=== PATIENT | female | born 1930 | race Two or more races ===

== ENCOUNTER 2017-05-01 11:02 | Emergency (ER) | payer MEDICARE ==
[2017-05-01] MEDS ORDERED: IBUPROFEN 400 MG TAB PO STA (11:27)
[2017-05-01] MEDS ORDERED: ACETAMINOPHEN TAB 500 MG TAB PO STA (11:27)
--- NOTE | 2017-05-01 11:32 | ED ---
General Adult HPI - General Chief complaint: Extremity Injury, Upper Stated complaint: Wrist pain Time Seen by Provider: 05/01/17 11:11 Source: patient Mode of arrival: wheelchair Limitations: no limitations - History of Present Illness Initial comments: Patient is an 86-year-old female who presents with a chief complaint of right wrist pain. The patient localizes her wrist pain on the ulnar aspect of her volar arm. Patient denies any inciting incidences such as falls or other trauma. Patient states that aggravating factors are wrist movement and blowing her nose. There are no alleviating factors. The patient tried taking any medications other than an 81 mg aspirin for the pain. Patient cannot characterize her pain saying "it just hurts". Patient has no other complaints today. - Related Data Home Medications Medication Instructions Recorded Confirmed Aspirin 81 mg PO DAILY 12/22/14 05/01/17 Furosemide [Lasix] 20 mg PO DAILY 12/22/14 05/01/17 Lisinopril [Prinivil] 5 mg PO DAILY 12/22/14 05/01/17 Multivit-Min/FA/Lycopene/Lut 1 tab PO DAILY 12/22/14 05/01/17 [Centrum Silver Tablet] Nadolol [Corgard] 20 mg PO DAILY 12/22/14 05/01/17 Potassium Chloride [K-Tab ER] 10 meq PO DAILY 12/22/14 05/01/17 Simvastatin [Zocor] 40 mg PO DAILY 12/22/14 05/01/17 glipiZIDE [Glucotrol] 5 mg PO AC-BRKFST 12/22/14 05/01/17 Previous Rx's Medication Instructions Recorded HYDROcodone/APAP 5-325MG [[place] 1 tab PO Q4HR PRN #5 tab 05/01/17 5-325] Naproxen Sodium [Aleve] 220 mg PO Q12HR #20 tab 05/01/17 Allergies Allergy/AdvReac Type Severity Reaction Status Date / Time diphenhydramine HCl Allergy Anaphylaxis Verified 05/01/17 11:50 [From Tila] Review of Systems ROS Statement: Those systems with pertinent positive or pertinent negative responses have been documented in the HPI. ROS Other: All systems not noted in ROS Statement are negative. Musculoskeletal: Reports: arthralgia Past Medical History Past Medical History: Heart Failure, Diabetes Mellitus, Hyperlipidemia, Hypertension Additional Past Medical History / Comment(s): oxygen at night History of Any Multi-Drug Resistant Organisms: None Reported Past Surgical History: Appendectomy, Hysterectomy Past Psychological History: No Psychological Hx Reported Smoking Status: Never smoker Past Alcohol Use History: None Reported, Occasional Past Drug Use History: None Reported General Exam Limitations: no limitations General appearance: alert, in no apparent distress Head exam: Present: atraumatic, normocephalic Eye exam: Present: normal appearance Respiratory exam: Present: normal lung sounds bilaterally. Absent: respiratory distress Cardiovascular Exam: Present: regular rate, normal rhythm GI/Abdominal exam: Present: soft. Absent: distended, tenderness Rectal exam: Present: deferred Extremities exam: Present: other (Patient has point tenderness to palpation at the ulnar fusiform junction. The pain is on the volar aspect of the wrist.) Neurological exam: Present: alert, oriented X3, CN II-XII intact, other ( Patient does not have any focal deficit.) Psychiatric exam: Present: normal affect, normal mood Course Vital Signs 05/01/17 11:05 Temperature 98.8 F Pulse Rate 64 Respiratory 16 Rate Blood Pressure 119/55 O2 Sat by Pulse 98 Oximetry Medical Decision Making - Medical Decision Making Patient presents with a chief complaint of atraumatic right wrist pain. Patient will be given Motrin, and Tylenol for pain control. We'll obtain an x- ray to rule out fracture, arthritis. Disposition Clinical Impression: Right wrist pain, Arthritis of right wrist Disposition: HOME SELF-CARE Condition: Good Instructions: Arthritis (ED) Prescriptions: HYDROcodone/APAP 5-325MG [[place] 5-325] 1 tab PO Q4HR PRN #5 tab PRN Reason: Pain Naproxen Sodium [Aleve] 220 mg PO Q12HR #20 tab Referrals: Kay Aranda MD [Primary Care Provider] - 1-2 days
--- NOTE | 2017-05-01 13:11 | XR ---
EXAMINATION TYPE: XR wrist complete RT DATE OF EXAM: 05/01/2017 CLINICAL HISTORY: Pain. TECHNIQUE: Frontal, lateral, scaphoid, and oblique images of the right wrist are obtained. COMPARISON: None FINDINGS: Osseous structures are demineralized. There is no acute fracture/dislocation evident in the right wrist. There is moderate joint space loss with heterotopic ossification base of first metacarp al. Mild diffuse subcutaneous edema is present. IMPRESSION: As above.
[2017-05-01 13:47] VITALS: BP 109/54; PULSE 58; RESP 18; TEMP 97.9
== END 2017-05-01 13:47 | disposition home or self-care (01) ==
LOC: EC 11:02
DX: M19.031 Primary osteoarthritis, right wrist (principal); E11.9 Type 2 diabetes mellitus without complications; I11.0 Hypertensive heart disease with heart failure; I50.9 Heart failure, unspecified; E78.5 Hyperlipidemia, unspecified; Z79.82 Long term (current) use of aspirin; Z79.84 Long term (current) use of oral hypoglycemic drugs; Z79.899 Other long term (current) drug therapy; Z88.8 Allergy status to other drugs, medicaments and biological substances
CPT/HCPCS: 99283

== ENCOUNTER 2018-05-17 22:03 | Observation (INO) | payer MEDICARE ==
[2018-05-17] MEDS ORDERED: SODIUM CHLORIDE 0.9% 1,000 ML IV STA (22:08)
--- NOTE | 2018-05-17 22:08 | ED ---
Weakness HPI - General Stated complaint: Weakness Time Seen by Provider: 05/17/18 22:07 Source: RN notes reviewed, old records reviewed - History of Present Illness Initial comments: This is an 79-year-old female the ER for evaluation she presents today for evaluation of weakness and inability and late. Patient does have difficulty moving getting up and down sitting but this was much worse today. She could not stand and neck her chair. EMS was called patient brought the emergency room. Patient continues to complain of significant weakness mild shortness of breath and fatigue. No recent change in medications no fevers, no nausea vomiting or diarrhea MD Complaint: generalized weakness -: hour(s) Location: generalized, LLE, RLE Severity: severe Consistency: constant Improves with: none Worsens with: none Associated Symptoms: chest pain, shortness of breath - Related Data Home Medications Medication Instructions Recorded Confirmed Aspirin 81 mg PO DAILY 12/22/14 05/17/18 Furosemide [Lasix] 20 mg PO DAILY 12/22/14 05/17/18 Lisinopril [Prinivil] 5 mg PO DAILY 12/22/14 05/17/18 Nadolol [Corgard] 20 mg PO DAILY 12/22/14 05/17/18 Potassium Chloride [K-Tab ER] 10 meq PO DAILY 12/22/14 05/17/18 Simvastatin [Zocor] 40 mg PO DAILY 12/22/14 05/17/18 glipiZIDE [Glucotrol] 5 mg PO AC-BRKFST 12/22/14 05/17/18 Allergies Allergy/AdvReac Type Severity Reaction Status Date / Time diphenhydramine HCl Allergy Anaphylaxis Verified 05/17/18 22:14 [From Benadryl] Review of Systems ROS Statement: Those systems with pertinent positive or pertinent negative responses have been documented in the HPI. ROS Other: All systems not noted in ROS Statement are negative. Past Medical History Past Medical History: Heart Failure, Diabetes Mellitus, Hyperlipidemia, Hypertension Additional Past Medical History / Comment(s): oxygen at night History of Any Multi-Drug Resistant Organisms: None Reported Past Surgical History: Appendectomy, Hysterectomy Past Psychological History: No Psychological Hx Reported Smoking Status: Never smoker Past Alcohol Use History: None Reported, Occasional Past Drug Use History: None Reported General Exam General appearance: alert, in no apparent distress, obese Head exam: Present: atraumatic, normocephalic, normal inspection Eye exam: Present: normal appearance, PERRL, EOMI. Absent: scleral icterus, conjunctival injection, periorbital swelling ENT exam: Present: normal exam, mucous membranes moist Neck exam: Present: normal inspection. Absent: tenderness, meningismus, lymphadenopathy Respiratory exam: Present: normal lung sounds bilaterally. Absent: respiratory distress, wheezes, rales, rhonchi, stridor Cardiovascular Exam: Present: regular rate, normal rhythm, normal heart sounds. Absent: systolic murmur, diastolic murmur, rubs, gallop, clicks GI/Abdominal exam: Present: soft, normal bowel sounds. Absent: distended, tenderness, guarding, rebound, rigid Extremities exam: Present: normal inspection, full ROM, normal capillary refill. Absent: tenderness, pedal edema, joint swelling, calf tenderness Back exam: Present: normal inspection Neurological exam: Present: alert, oriented X3, CN II-XII intact Psychiatric exam: Present: normal affect, normal mood Skin exam: Present: warm, dry, intact, normal color. Absent: rash Course Vital Signs 05/17/18 05/17/18 05/17/18 22:10 22:27 22:59 Temperature 98.9 F Pulse Rate 72 67 Pulse Rate [ 72 Apical] Respiratory 20 22 Rate Blood Pressure 143/69 144/63 O2 Sat by Pulse 92 L 96 Oximetry - Reevaluation(s) Reevaluation #1: 05/18/18 01:44 Medical record is reviewed Reevaluation #2: 05/18/18 01:44 Patient remains unable to ambulate EKG Findings - EKG Comments: EKG Findings:: EKG shows A. fib rate of 67, QRS 90, QTc 422 Medical Decision Making - Medical Decision Making 87 female the ER for evaluation. Patient will be admitted for inability to ambulate and weakness. - Lab Data Result diagrams: 05/17/18 22:29 05/17/18 22:29 Lab Results 05/17/18 05/17/18 05/17/18 Range/Units 22:29 22:29 22:29 WBC 7.7 (3.8-10.6) k/uL RBC 4.48 (3.80-5.40) m/uL Hgb 14.7 (11.4-16.0) gm/dL Hct 47.7 H (34.0-46.0) % MCV 106.3 H (80.0-100.0) fL MCH 32.9 (25.0-35.0) pg MCHC 30.9 L (31.0-37.0) g/dL RDW 13.4 (11.5-15.5) % Plt Count 143 L (150-450) k/uL Neutrophils % 68 % Lymphocytes % 16 % Monocytes % 9 % Eosinophils % 3 % Basophils % 0 % Neutrophils # 5.2 (1.3-7.7) k/uL Lymphocytes # 1.2 (1.0-4.8) k/uL Monocytes # 0.7 (0-1.0) k/uL Eosinophils # 0.2 (0-0.7) k/uL Basophils # 0.0 (0-0.2) k/uL Hypochromasia Slight Macrocytosis Moderate PT (9.0-12.0) sec INR (<1.2) APTT (22.0-30.0) sec Sodium 137 (137-145) mmol/L Potassium 5.5 H (3.5-5.1) mmol/L Chloride 98 (98-107) mmol/L Carbon Dioxide 32 H (22-30) mmol/L Anion Gap 7 mmol/L BUN 25 H (7-17) mg/dL Creatinine 0.89 (0.52-1.04) mg/dL Est GFR (CKD-EPI)AfAm 67 (>60 ml/min/1.73 sqM) Est GFR (CKD-EPI)NonAf 58 (>60 ml/min/1.73 sqM) Glucose 256 H (74-99) mg/dL Plasma Lactic Acid Timothy 2.1 H* (0.7-2.0) mmol/L Calcium 9.8 (8.4-10.2) mg/dL Phosphorus 3.4 (2.5-4.5) mg/dL Magnesium 1.7 (1.6-2.3) mg/dL Total Bilirubin 1.0 (0.2-1.3) mg/dL AST 39 H (14-36) U/L ALT 28 (9-52) U/L Alkaline Phosphatase 55 (38-126) U/L Troponin I (0.000-0.034) ng/mL Total Protein 7.6 (6.3-8.2) g/dL Albumin 3.8 (3.5-5.0) g/dL TSH 0.770 (0.465-4.680) mIU/L Urine Color Urine Appearance (Clear) Urine pH (5.0-8.0) Ur Specific [place] (1.001-1.035) Urine Protein (Negative) Urine Glucose (UA) (Negative) Urine Ketones (Negative) Urine Blood (Negative) Urine Nitrite (Negative) Urine Bilirubin (Negative) Urine Urobilinogen (<2.0) mg/dL Ur Leukocyte Esterase (Negative) 05/17/18 05/17/18 05/17/18 Range/Units 22:29 22:57 23:20 WBC (3.8-10.6) k/uL RBC (3.80-5.40) m/uL Hgb (11.4-16.0) gm/dL Hct (34.0-46.0) % MCV (80.0-100.0) fL MCH (25.0-35.0) pg MCHC (31.0-37.0) g/dL RDW (11.5-15.5) % Plt Count (150-450) k/uL Neutrophils % % Lymphocytes % % Monocytes % % Eosinophils % % Basophils % % Neutrophils # (1.3-7.7) k/uL Lymphocytes # (1.0-4.8) k/uL Monocytes # (0-1.0) k/uL Eosinophils # (0-0.7) k/uL Basophils # (0-0.2) k/uL Hypochromasia Macrocytosis PT 10.7 (9.0-12.0) sec INR 1.0 (<1.2) APTT 21.9 L (22.0-30.0) sec Sodium (137-145) mmol/L Potassium (3.5-5.1) mmol/L Chloride (98-107) mmol/L Carbon Dioxide (22-30) mmol/L Anion Gap mmol/L BUN (7-17) mg/dL Creatinine (0.52-1.04) mg/dL Est GFR (CKD-EPI)AfAm (>60 ml/min/1.73 sqM) Est GFR (CKD-EPI)NonAf (>60 ml/min/1.73 sqM) Glucose (74-99) mg/dL Plasma Lactic Acid Timothy (0.7-2.0) mmol/L Calcium (8.4-10.2) mg/dL Phosphorus (2.5-4.5) mg/dL Magnesium (1.6-2.3) mg/dL Total Bilirubin (0.2-1.3) mg/dL AST (14-36) U/L ALT (9-52) U/L Alkaline Phosphatase (38-126) U/L Troponin I <0.012 (0.000-0.034) ng/mL Total Protein (6.3-8.2) g/dL Albumin (3.5-5.0) g/dL TSH (0.465-4.680) mIU/L Urine Color Yellow Urine Appearance Clear (Clear) Urine pH 6.5 (5.0-8.0) Ur Specific [place] 1.013 (1.001-1.035) Urine Protein Trace H (Negative) Urine Glucose (UA) 4+ H (Negative) Urine Ketones Negative (Negative) Urine Blood Negative (Negative) Urine Nitrite Negative (Negative) Urine Bilirubin Negative (Negative) Urine Urobilinogen 2.0 (<2.0) mg/dL Ur Leukocyte Esterase Negative (Negative) - Radiology Data Radiology results: report reviewed (Chest x-rays negative for acute disease), image reviewed Disposition Clinical Impression: Weakness, FTT (failure to thrive) in adult, Unable to ambulate Disposition: ADMITTED IP TO THIS [facility] Condition: Fair Is patient prescribed a controlled substance at d/c from ED?: No Referrals: Kay Aranda MD [Primary Care Provider] - 1-2 days
[2018-05-17 22:35] LABS: Basophils % (A) 0 %; Eosinophils # (A) 0.2 k/uL (0-0.7); Eosinophils % (A) 3 %; HCT 47.7 % (34.0-46.0); HGB 14.7 gm/dL (11.4-16.0); Hypochromasia Slight; Lymphocytes # (A) 1.2 k/uL (1.0-4.8); Lymphocytes % (A) 16 %; MCH 32.9 pg (25.0-35.0); MCHC 30.9 g/dL (31.0-37.0); MCV 106.3 fL (80.0-100.0); Macrocytosis Moderate; Mean Platelet Volume 7.6; Monocytes # (A) 0.7 k/uL (0-1.0); Monocytes % (A) 9 %; Neutrophils # (A) 5.2 k/uL (1.3-7.7); Neutrophils % (A) 68 %; Platelet Count 143 k/uL (150-450); RBC 4.48 m/uL (3.80-5.40); RDW 13.4 % (11.5-15.5); WBC 7.7 k/uL (3.8-10.6)
[2018-05-17 22:46] LABS: Albumin 3.8 g/dL (3.5-5.0); Calcium 9.8 mg/dL (8.4-10.2); Magnesium 1.7 mg/dL (1.6-2.3); Phosphorus 3.4 mg/dL (2.5-4.5); Total Protein 7.6 g/dL (6.3-8.2)
[2018-05-17 22:47] LABS: Potassium 5.5 mmol/L (3.5-5.1)
--- NOTE | 2018-05-17 23:10 | XR ---
EXAM: XR Chest, 2 Views CLINICAL HISTORY: Reason: Weakness TECHNIQUE: Frontal and lateral views of the chest. COMPARISON: None available FINDINGS: Lungs: No focal pulmonary infiltrates or consolidations. No evidence of overt congestive failure or pulmonary edema. Scattered subsegmental atelectasis or fibrotic stranding in both lung bases. Pleural space: No pneumothorax or any significant pleural effusion. Heart: Heart size is mildly enlarged. Mediastinum: Mild atherosclerotic calcifications in tortuous thoracic aorta. Mediastinum otherwise unremarkable. Bones/joints: Prominent hypertrophic degenerative changes involving thoracic spine. IMPRESSION: Mild cardiomegaly. No evidence of acute cardiopulmonary disease.
[2018-05-17 23:21] LABS: Appearance,Urine Clear (Clear); Bilirubin,Urine Negative (Negative); Blood,Urine Negative (Negative); Color,Urine Yellow; Glucose,Urine (UA) 4+ (Negative); Ketones,Urine Negative (Negative); Leukocyte Esterase,Urine Negative (Negative); Nitrite,Urine Negative (Negative); PH, Urine 6.5 (5.0-8.0); Protein,Urine Trace (Negative); Specific Gravity,Urine 1.013 (1.001-1.035)
[2018-05-18 00:05] LABS: Partial Thromboplastin Time 21.9 sec (22.0-30.0); Prothrombin Time 10.7 sec (9.0-12.0)
[2018-05-18 02:46] VITALS: BMI 40.9
[2018-05-18 06:39] LABS: Glucose,Whole Blood 137 mg/dL (75-99)
[2018-05-18] MEDS ORDERED: ENOXAPARIN 40 MG/0.4 ML SYRINGE SQ SCH (09:00)
--- NOTE | 2018-05-18 10:05 | P.CRDCN ---
History of Present Illness Consult date: 05/18/18 Requesting physician: Jonah Davis Chief complaint: Weakness History of present illness: This is an 87-year-old female with history of hypertension, hyperlipidemia, diabetes, history was obtained from the patient and the medical record, as it does appear she may have mild dementia. She presented to the hospital on this occasion because she states she was unable to get up out of the chair, she denies any overt weakness, denies dizziness, no chest discomfort no palpitations no shortness of breath. Just states that she was sitting in a chair and could not get out. An EKG was performed on arrival here which showed atrial fibrillation with a controlled ventricular response. Chest x-ray showed mild cardiomegaly with no evidence of acute cardiopulmonary disease. Blood pressure on arrival 143/69 with a heart rate in the 70s, temperature 98.9, 92% on room air. Blood pressure this morning 120/60 with a heart rate in the 70s, 94% on 2 L of oxygen. White blood cell count 7.7, hemoglobin 14.7, platelet count 143. Sodium 137, potassium 5.5, BUN 25 and creatinine 0.8. Plasma lactic acid level on admission 2.1, 1.1 this morning. Magnesium 1.7, troponin 0.012, TSH 0.770. At the time of my examination this morning, patient is lying comfortably in bed, she denies having any chest is morning. She ate a full breakfast. Past Medical History Past Medical History: Heart Failure, Diabetes Mellitus, Hyperlipidemia, Hypertension Additional Past Medical History / Comment(s): oxygen at night History of Any Multi-Drug Resistant Organisms: None Reported Past Surgical History: Appendectomy, Hysterectomy Past Anesthesia/Blood Transfusion Reactions: No Reported Reaction Past Psychological History: No Psychological Hx Reported Smoking Status: Never smoker Past Alcohol Use History: None Reported, Occasional Past Drug Use History: None Reported - Past Family History Daughter(s) Family Medical History: Hypertension Mother Family Medical History: Diabetes Mellitus Medications and Allergies Home Medications Medication Instructions Recorded Confirmed Type Aspirin 81 mg PO DAILY 12/22/14 05/17/18 History Furosemide [Lasix] 20 mg PO DAILY 12/22/14 05/17/18 History Lisinopril [Prinivil] 5 mg PO DAILY 12/22/14 05/17/18 History Nadolol [Corgard] 20 mg PO DAILY 12/22/14 05/17/18 History Potassium Chloride [K-Tab ER] 10 meq PO DAILY 12/22/14 05/17/18 History Simvastatin [Zocor] 40 mg PO DAILY 12/22/14 05/17/18 History glipiZIDE [Glucotrol] 5 mg PO AC-BRKFST 12/22/14 05/17/18 History Allergies Allergy/AdvReac Type Severity Reaction Status Date / Time diphenhydramine HCl Allergy Anaphylaxis Verified 05/17/18 22:14 [From Benadryl] Physical Exam Vitals: Vital Signs Temp Pulse Pulse Pulse Resp BP BP 05/18/18 08:23 05/18/18 04:00 97.9 F 79 18 120/60 05/18/18 02:30 98.1 F 68 18 102/57 05/17/18 22:59 67 22 144/63 05/17/18 22:27 72 05/17/18 22:10 98.9 F 72 20 143/69 Pulse Ox 05/18/18 08:23 95 05/18/18 04:00 94 L 05/18/18 02:30 95 05/17/18 22:59 96 05/17/18 22:27 05/17/18 22:10 92 L Intake and Output 05/17/18 05/18/18 05/18/18 22:59 06:59 14:59 Intake Total 180 Output Total 100 Balance -100 180 Intake: Oral 180 Output: Urine 100 Straight 100 Other: Voiding Method Diaper Weight 108.2 kg 117 kg PHYSICAL EXAMINATION: GENERAL: 87-year-old female in no acute distress at the time of my examination HEENT: Head is atraumatic, normocephalic. Pupils equal, round. Sclera anicteric. Conjunctiva are clear. Mucous membranes of the mouth are moist. Neck is supple. There is no elevated jugular venous pressure. No carotid bruit is heard. HEART EXAMINATION: Heart S1, S2 irregularly irregular, soft systolic murmur is heard. CHEST EXAMINATION: Lungs reveal fine crackles to bilateral bases ABDOMEN: Soft, nontender. Bowel sounds are heard. No organomegaly noted. EXTREMITIES: 2+ peripheral pulses with trace to 1+ evidence of peripheral edema and no calf tenderness noted. NEUROLOGIC patient is awake, alert and oriented 2 . . Results 05/17/18 22:29 05/17/18 22:29 Cardiac Enzymes 05/17/18 05/17/18 Range/Units 22:29 22:29 AST 39 H (14-36) U/L Troponin I <0.012 (0.000-0.034) ng/mL Coagulation 05/17/18 Range/Units 23:20 PT 10.7 (9.0-12.0) sec APTT 21.9 L (22.0-30.0) sec CBC 05/17/18 Range/Units 22:29 WBC 7.7 (3.8-10.6) k/uL RBC 4.48 (3.80-5.40) m/uL Hgb 14.7 (11.4-16.0) gm/dL Hct 47.7 H (34.0-46.0) % Plt Count 143 L (150-450) k/uL Comprehensive Metabolic Panel 05/17/18 Range/Units 22:29 Sodium 137 (137-145) mmol/L Potassium 5.5 H (3.5-5.1) mmol/L Chloride 98 (98-107) mmol/L Carbon Dioxide 32 H (22-30) mmol/L BUN 25 H (7-17) mg/dL Creatinine 0.89 (0.52-1.04) mg/dL Glucose 256 H (74-99) mg/dL Calcium 9.8 (8.4-10.2) mg/dL AST 39 H (14-36) U/L ALT 28 (9-52) U/L Alkaline Phosphatase 55 (38-126) U/L Total Protein 7.6 (6.3-8.2) g/dL Albumin 3.8 (3.5-5.0) g/dL Current Medications Generic Name Dose Route Start Last Admin Trade Name Freq PRN Reason Stop Dose Admin Enoxaparin Sodium 40 mg 05/18/18 09:00 05/18/18 09:42 Lovenox SQ 40 mg DAILY GRADY Administration Intake and Output 05/17/18 05/18/18 05/18/18 22:59 06:59 14:59 Intake Total 180 Output Total 100 Balance -100 180 Intake: Oral 180 Output: Urine 100 Straight 100 Other: Voiding Method Diaper Weight 108.2 kg 117 kg 05/17/18 22:29 05/17/18 22:29 EKG Interpretations (text) EKG shows atrial fibrillation with controlled ventricular response Assessment and Plan Plan: Assessment and plan #1 symptoms of weakness with inability to ambulate #2 atrial fibrillation with controlled ventricular response, unknown duration #3 hypertension #4 diabetes #5 hyperlipidemia #6 mild dementia Plan We will obtain an echocardiogram with Doppler study. We will also start the patient on Eliquis 2-1/2 mg one tablet by mouth twice a day. Discontinue Lovenox. Resume Zocor, hold potassium, obtain BNP level, give the patient a one -time dose of IV Lasix and resume oral Lasix. We will also start the patient on a beta agnieszka. Further recommendations to follow. DNP note has been reviewed, I agree with a documented findings and plan of care. Patient was seen and examined.
[2018-05-18 11:55] LABS: Glucose,Whole Blood 208 mg/dL (75-99)
--- NOTE | 2018-05-18 12:02 | P.HPIM ---
History of Present Illness H&P Date: 05/18/18 This is a very pleasant 87-year-old female past medical history significant for hypertension, hyperlipidemia, diabetes comes in with above-mentioned complaints. Patient the time examination was alert oriented. She says that she lives at home with her granddaughter and yesterday she was not able to get about the chair or so she called the ambulance for further evaluation and management. The patient does not complain of any chest pain, racing heart, no cough, shortness of breath, no abdominal pain, no nausea and vomiting, no diarrhea constipation, no tingling numbness of any of the extremities, no itch no rash. She does not complain of any lightheadedness or dizziness, she does not complain of any loss of vision or blurry vision, no fever no chills, no headache. ER course-patient's vitals were stable, EKG was done and showed A. fib with controlled rate. Labwork which was done yesterday showed WBC 7.7 hemoglobin 14.7 platelets 143 sodium 137 potassium 5.5 bun 25 creatinine 0.89. Patient was thus admitted to the hospitalist service for further evaluation and management Past Medical History Past Medical History: Heart Failure, Diabetes Mellitus, Hyperlipidemia, Hypertension Additional Past Medical History / Comment(s): oxygen at night History of Any Multi-Drug Resistant Organisms: None Reported Past Surgical History: Appendectomy, Hysterectomy Past Anesthesia/Blood Transfusion Reactions: No Reported Reaction Past Psychological History: No Psychological Hx Reported Smoking Status: Never smoker Past Alcohol Use History: None Reported, Occasional Past Drug Use History: None Reported - Past Family History Daughter(s) Family Medical History: Hypertension Mother Family Medical History: Diabetes Mellitus Medications and Allergies Home Medications Medication Instructions Recorded Confirmed Type Aspirin 81 mg PO DAILY 12/22/14 05/17/18 History Furosemide [Lasix] 20 mg PO DAILY 12/22/14 05/17/18 History Lisinopril [Prinivil] 5 mg PO DAILY 12/22/14 05/17/18 History Nadolol [Corgard] 20 mg PO DAILY 12/22/14 05/17/18 History Potassium Chloride [K-Tab ER] 10 meq PO DAILY 12/22/14 05/17/18 History Simvastatin [Zocor] 40 mg PO DAILY 12/22/14 05/17/18 History glipiZIDE [Glucotrol] 5 mg PO AC-BRKFST 12/22/14 05/17/18 History Allergies Allergy/AdvReac Type Severity Reaction Status Date / Time diphenhydramine HCl Allergy Anaphylaxis Verified 05/17/18 22:14 [From Benadryl] Physical Exam Vitals: Vital Signs Temp Pulse Pulse Pulse Resp BP BP 05/18/18 08:23 05/18/18 08:00 97 F L 70 96 16 124/72 05/18/18 04:00 97.9 F 79 18 120/60 05/18/18 02:30 98.1 F 68 18 102/57 05/17/18 22:59 67 22 144/63 05/17/18 22:27 72 05/17/18 22:10 98.9 F 72 20 143/69 Pulse Ox 05/18/18 08:23 95 05/18/18 08:00 05/18/18 04:00 94 L 05/18/18 02:30 95 05/17/18 22:59 96 05/17/18 22:27 05/17/18 22:10 92 L Intake and Output 05/17/18 05/18/18 05/18/18 22:59 06:59 14:59 Intake Total 180 Output Total 100 Balance -100 180 Intake: Oral 180 Output: Urine 100 Straight 100 Other: Voiding Method Diaper Weight 108.2 kg 117 kg On exam, alert and oriented x3. HEENT: Conjunctivae normal. eyes normal. NECK: No JVD. No thyroid enlargement. No LNs CARDIOVASCULAR: S1-S2 positive RESPIRATION: Breath sounds diminished in the bases. No rhonchi or crackles. No bronchial breathing. ABDOMEN: Soft, nontender . No guarding. no masses palpable. No ascites, No hepatosplenomegaly.Bowel sounds heard. LEGS: No edema. no swelling NERVOUS SYSTEM: Cranial N 2-12 grossly normal. Moves all 4 limbs but weak on her bilateral lower extremities barely able to lift the legs above the bed. Skin: no ulcer no rash Results CBC & Chem 7: 05/17/18 22:29 05/17/18 22:29 Labs: Abnormal Lab Results - Last 24 Hours (Table) 05/17/18 05/17/18 05/17/18 Range/Units 22:29 22:29 22:29 Hct 47.7 H (34.0-46.0) % MCV 106.3 H (80.0-100.0) fL MCHC 30.9 L (31.0-37.0) g/dL Plt Count 143 L (150-450) k/uL APTT (22.0-30.0) sec Potassium 5.5 H (3.5-5.1) mmol/L Carbon Dioxide 32 H (22-30) mmol/L BUN 25 H (7-17) mg/dL Glucose 256 H (74-99) mg/dL POC Glucose (mg/dL) (75-99) mg/dL Plasma Lactic Acid Timothy 2.1 H* (0.7-2.0) mmol/L AST 39 H (14-36) U/L Urine Protein (Negative) Urine Glucose (UA) (Negative) 05/17/18 05/17/18 05/18/18 Range/Units 22:57 23:20 06:37 Hct (34.0-46.0) % MCV (80.0-100.0) fL MCHC (31.0-37.0) g/dL Plt Count (150-450) k/uL APTT 21.9 L (22.0-30.0) sec Potassium (3.5-5.1) mmol/L Carbon Dioxide (22-30) mmol/L BUN (7-17) mg/dL Glucose (74-99) mg/dL POC Glucose (mg/dL) 137 H (75-99) mg/dL Plasma Lactic Acid Timothy (0.7-2.0) mmol/L AST (14-36) U/L Urine Protein Trace H (Negative) Urine Glucose (UA) 4+ H (Negative) 05/18/18 Range/Units 11:45 Hct (34.0-46.0) % MCV (80.0-100.0) fL MCHC (31.0-37.0) g/dL Plt Count (150-450) k/uL APTT (22.0-30.0) sec Potassium (3.5-5.1) mmol/L Carbon Dioxide (22-30) mmol/L BUN (7-17) mg/dL Glucose (74-99) mg/dL POC Glucose (mg/dL) 208 H (75-99) mg/dL Plasma Lactic Acid Timothy (0.7-2.0) mmol/L AST (14-36) U/L Urine Protein (Negative) Urine Glucose (UA) (Negative) Microbiology - Last 24 Hours (Table) 05/17/18 22:57 Urine Culture - Preliminary Urine,Catheterized Thrombosis Risk Factor Assmnt - Choose All That Apply Any of the Below Risk Factors Present?: Yes Each Factor Represents 1 point: Obesity (BMI >25), Swollen legs (current) Other Risk Factors: Yes Each Risk Factor Represents 3 Points: Age 75 years or older Thrombosis Risk Factor Assessment Total Risk Factor Score: 5 Thrombosis Risk Factor Assessment Level: High Risk Assessment and Plan Assessment: - A. fib with controlled rate - Weakness - Hyperkalemia - History of hypertension - History of hyperlipidemia - History of diabetes Plan - We'll admit the patient to [facility] with telemetry - Cardiology consulted, pressure the recommendations. The patient was started on blood thinners - Patient was also started on beta blockers we'll continue that for now - We'll start insulin sliding scale - Patient is very weak in the bilateral lower extremities. PT OT has been consulted. She might need to go to inpatient rehab depending upon PT recommendations - GI prophylaxis with Prilosec - We'll order for lab work in the morning - Expected length of stay more than 2 midnights - Patient was to be DO NOT RESUSCITATE limited Time with Patient: Greater than 30
[2018-05-18] MEDS: METOPROLOL TARTRATE 25 MG TAB PO SCH ×2 (12:44→20:09)
[2018-05-18] MEDS: INSULIN ASPART (NovoLOG) 100 UNIT/ML VIAL SQ SCH ×3 (12:45→20:09)
[2018-05-18] MEDS ORDERED: ASPIRIN 81 MG PO SCH (12:55)
[2018-05-18] MEDS ORDERED: FUROSEMIDE 10 MG/ML 4 ML VIAL IV STA (12:59)
[2018-05-18] MEDS: APIXABAN 2.5 MG TABLET PO SCH ×2 (13:10→20:09)
--- NOTE | 2018-05-18 16:47 | ECHOF ---
Referral Reason:sob MEASUREMENTS -------- HEIGHT: 165.1 cm WEIGHT: 136.1 kg BP: IVSd: 1.5 cm (0.6 - 1.1) LVIDd: 3.1 cm (3.9 - 5.3) LVPWd: 1.6 cm (0.6 - 1.1) IVSs: 1.7 cm LVIDs: 1.2 cm LVPWs: 1.7 cm Ao Diam: 2.9 cm (2.0 - 3.7) AV Cusp: 1.4 cm (1.5 - 2.6) LA Diam: 4.1 cm (2.7 - 3.8) MV EXCURSION: 12.842 mm (> 18.000) MV EF SLOPE: 71 mm/s (70 - 150) EPSS: 0.5 cm MV E Joey: 1.06 m/s MV DecT: 201 ms MV A Joey: 0.50 m/s MV E/A Ratio: 2.10 RAP: 5.00 mmHg RVSP: 31.76 mmHg FINDINGS -------- Sinus rhythm. This was a technically difficult study with suboptimal views. The left ventricular size is normal. There is moderate concentric left ventricular hypertrophy. O verall left ventricular systolic function is normal with, an EF between 55 - 60 %. The right ventricle is normal in size and function. The left atrium is moderately dilated. The right atrium is normal in size. Lumason used Aortic valve is trileaflet and is mildly thickened. The mitral valve leaflets are mildly thickened. Mild mitral annular calcification present. Mild m itral regurgitation is present. Mild tricuspid regurgitation present. The right ventricular systolic pressure, as measured by Doppl er, is 31.76mmHg. Pulmonic valve appears structurally normal. The aortic root size is normal. IVC Not well visulized. The pericardium is normal. CONCLUSIONS -------- 1. Sinus rhythm. 2. This was a technically difficult study with suboptimal views. 3. The left ventricular size is normal. 4. There is moderate concentric left ventricular hypertrophy. 5. Overall left ventricular systolic function is normal with, an EF between 55 - 60 %. 6. The right ventricle is normal in size and function. 7. The left atrium is moderately dilated. 8. The right atrium is normal in size. 9. Lumason used 10. Aortic valve is trileaflet and is mildly thickened. 11. The mitral valve leaflets are mildly thickened. 12. Mild mitral annular calcification present. 13. Mild mitral regurgitation is present. 14. Mild tricuspid regurgitation present. 15. The right ventricular systolic pressure, as measured by Doppler, is 31.76mmHg. 16. Pulmonic valve appears structurally normal. 17. The aortic root size is normal. 18. IVC Not well visulized. 19. The pericardium is normal. ELECTRONICS DESIGN ENGINEER: Andree Lopez RDCS
[2018-05-18 17:18] LABS: Glucose,Whole Blood 145 mg/dL (75-99)
[2018-05-18 20:06] LABS: Glucose,Whole Blood 222 mg/dL (75-99)
[2018-05-18] MEDS: MELATONIN 3 MG TABLET PO PRN (20:10)
[2018-05-19 06:06] LABS: Glucose,Whole Blood 149 mg/dL (75-99)
[2018-05-19] MEDS: INSULIN ASPART (NovoLOG) 100 UNIT/ML VIAL SQ SCH ×4 (06:16→20:04)
[2018-05-19] MEDS: METOPROLOL TARTRATE 25 MG TAB PO SCH ×2 (08:15→20:03)
[2018-05-19] MEDS: LISINOPRIL 5 MG TAB PO SCH (08:16)
[2018-05-19] MEDS: APIXABAN 2.5 MG TABLET PO SCH ×2 (08:16→20:03)
[2018-05-19] MEDS: ATORVASTATIN 20 MG TAB PO SCH (08:16)
[2018-05-19] MEDS: FUROSEMIDE 20 MG TAB PO SCH (08:16)
[2018-05-19] MEDS ORDERED: FUROSEMIDE 20 MG TAB PO SCH (09:00)
[2018-05-19] MEDS ORDERED: ASPIRIN 81 MG PO SCH (09:00)
[2018-05-19 09:13] LABS: Calcium 9.4 mg/dL (8.4-10.2); Potassium 4.5 mmol/L (3.5-5.1)
--- NOTE | 2018-05-19 09:44 | P.PN ---
Subjective Progress Note Date: 05/19/18 87-year-old female comes in with weakness. She was found to be in A. fib with controlled rate 05/19/2018 Patient says that she's doing. Still weak No chest pain or racing heart No cough no shortness of breath Objective - Vital Signs Vital signs: Vital Signs Temp 97.9 F 05/19/18 08:00 Pulse 75 05/19/18 08:00 Resp 20 05/19/18 08:00 BP 108/72 05/19/18 08:00 Pulse Ox 95 05/19/18 08:00 Intake & Output 05/18/18 05/19/18 05/19/18 18:59 06:59 18:59 Intake Total 410 600 Balance 410 600 Weight 117.4 kg Intake: Oral 410 600 Other: Voiding Method Diaper # Voids 3 1 - Exam On exam, alert and oriented x3. HEENT: Conjunctivae normal. eyes normal. NECK: No JVD. No thyroid enlargement. No LNs CARDIOVASCULAR: S1-S2 positive RESPIRATION: Breath sounds diminished in the bases. No rhonchi or crackles. No bronchial breathing. ABDOMEN: Soft, nontender . No guarding. no masses palpable. No ascites, No hepatosplenomegaly.Bowel sounds heard. LEGS: Trace pedal edema NERVOUS SYSTEM: Cranial N 2-12 grossly normal. Moves all 4 limbs but really weak in the lower extremities barely able to keep them up against gravity Skin: no ulcer no rash - Labs CBC & Chem 7: 05/17/18 22:29 05/19/18 08:47 Labs: Abnormal Lab Results - Last 24 Hours (Table) 05/18/18 05/18/18 05/18/18 Range/Units 11:45 17:15 20:05 Carbon Dioxide (22-30) mmol/L BUN (7-17) mg/dL Glucose (74-99) mg/dL POC Glucose (mg/dL) 208 H 145 H 222 H (75-99) mg/dL 05/19/18 05/19/18 Range/Units 06:05 08:47 Carbon Dioxide 36 H (22-30) mmol/L BUN 23 H (7-17) mg/dL Glucose 207 H (74-99) mg/dL POC Glucose (mg/dL) 149 H (75-99) mg/dL Microbiology - Last 24 Hours (Table) 05/17/18 22:57 Urine Culture - Preliminary Urine,Catheterized Assessment and Plan Assessment: - A. fib with controlled rate - Weakness - Hyperkalemia - History of hypertension - History of hyperlipidemia - History of diabetes Plan - Continue the medications - PTOT on board. We'll wait for the recommendations - Patient would benefit from inpatient rehab as she is very weak able to barely lift her legs against gravity - Continue rest of medications - DVT and GI prophylaxis - We'll continue to monitor the patient Time with Patient: Greater than 30
[2018-05-19 11:54] LABS: Glucose,Whole Blood 169 mg/dL (75-99)
--- NOTE | 2018-05-19 13:19 | P.PN ---
Subjective this is a pleasant 87-year-old female past medical history significant for hypertension, dyslipidemia and diabetes mellitus. She is seen and examined sitting up in bed resting comfortably in no acute distress. She denies symptoms of chest pain, shortness of breath, dizziness or palpitation. Her only complaint that she feels weak and is has difficulty getting up out of bed by herself. Blood pressure 93/57 heart rate 74 afebrile maintaining oxygen saturation on room air. Laboratory data reviewed, sodium 139, potassium 4.5, creatinine 0.99, NTproBNP 897. Currently maintained on Eliquis 2.5 mg twice a day, atorvastatin 20 mg daily, Lasix 20 mg daily, lisinopril 5 mg daily and Lopressor 25 mg twice a day. Echo obtained reveals preserved left ventricular systolic function with ejection fraction 55-60%, mild MR and mild TR. GENERAL: Well-appearing, well-nourished and in no acute distress. NECK: Supple without JVD or thyromegaly. LUNGS: Breath sounds clear to auscultation bilaterally. Respiration equal and unlabored. No wheezes, rales or rhonchi. Diminished bilaterally. HEART: Irregular rate and rhythm with systolic ejection murmur at the left sternal border, no rubs or gallops. S1 and S2 heard. EXTREMITIES: Normal range of motion, trace bilateral lower extremity edema and erythema. No clubbing or cyanosis. Peripheral pulses intact. ASSESSMENT Weakness and inability to ambulate Paroxysmal atrial fibrillation with controlled ventricular response, eliquis initiated. Hypertension Dyslipidemia Diabetes mellitus Dementia PLAN Continue current medical regimen. We will continue to follow as needed, please feel free to call with further questions or concerns. Nurse Practitioner note has been reviewed, I agree with a documented findings and plan of care. Patient was seen and examined. Objective - Vital Signs Vital signs: Vital Signs Temp 97.9 F 05/19/18 08:00 Pulse 74 05/19/18 11:48 Resp 20 05/19/18 11:48 BP 93/57 05/19/18 11:48 Pulse Ox 95 05/19/18 11:48 Intake & Output 05/18/18 05/19/18 05/19/18 18:59 06:59 18:59 Intake Total 410 600 Balance 410 600 Weight 117.4 kg Intake: Oral 410 600 Other: Voiding Method Diaper Diaper # Voids 3 1 - Labs CBC & Chem 7: 05/17/18 22:29 05/19/18 08:47 Labs: Abnormal Lab Results - Last 24 Hours (Table) 05/18/18 05/18/18 05/19/18 Range/Units 17:15 20:05 06:05 Carbon Dioxide (22-30) mmol/L BUN (7-17) mg/dL Glucose (74-99) mg/dL POC Glucose (mg/dL) 145 H 222 H 149 H (75-99) mg/dL 05/19/18 05/19/18 Range/Units 08:47 11:33 Carbon Dioxide 36 H (22-30) mmol/L BUN 23 H (7-17) mg/dL Glucose 207 H (74-99) mg/dL POC Glucose (mg/dL) 169 H (75-99) mg/dL Microbiology - Last 24 Hours (Table) 05/17/18 22:57 Urine Culture - Final Urine,Catheterized
[2018-05-19 16:55] LABS: Glucose,Whole Blood 173 mg/dL (75-99)
[2018-05-19 20:03] LABS: Glucose,Whole Blood 205 mg/dL (75-99)
[2018-05-19] MEDS: MELATONIN 3 MG TABLET PO PRN (20:03)
[2018-05-20 06:26] LABS: Glucose,Whole Blood 154 mg/dL (75-99)
[2018-05-20] MEDS: INSULIN ASPART (NovoLOG) 100 UNIT/ML VIAL SQ SCH ×4 (06:51→21:17)
[2018-05-20 08:48] LABS: HCT 44.9 % (34.0-46.0); HGB 13.3 gm/dL (11.4-16.0); Hypochromasia Marked; MCH 32.7 pg (25.0-35.0); MCHC 29.6 g/dL (31.0-37.0); MCV 110.2 fL (80.0-100.0); Macrocytosis Marked; Mean Platelet Volume 7.8; Platelet Count 126 k/uL (150-450); RBC 4.08 m/uL (3.80-5.40); RDW 13.3 % (11.5-15.5); WBC 7.1 k/uL (3.8-10.6)
[2018-05-20] MEDS: APIXABAN 2.5 MG TABLET PO SCH ×2 (08:48→21:17)
[2018-05-20] MEDS: METOPROLOL TARTRATE 25 MG TAB PO SCH ×2 (08:48→21:17)
[2018-05-20] MEDS: FUROSEMIDE 20 MG TAB PO SCH (08:48)
[2018-05-20] MEDS: ATORVASTATIN 20 MG TAB PO SCH (08:48)
[2018-05-20] MEDS: LISINOPRIL 5 MG TAB PO SCH (08:48)
[2018-05-20 09:01] LABS: Calcium 9.6 mg/dL (8.4-10.2); Potassium 4.9 mmol/L (3.5-5.1)
[2018-05-20 11:42] LABS: Glucose,Whole Blood 156 mg/dL (75-99)
--- NOTE | 2018-05-20 12:42 | P.PN ---
Subjective 87-year-old female comes in with weakness. She was found to be in A. fib with controlled rate 05/19/2018 Patient says that she's doing. Still weak No chest pain or racing heart No cough no shortness of breath 05/20/2018 Patient sitting on the chair today Still feel week No cough no shortness of breath, no chest pain racing heart Objective - Vital Signs Vital signs: Vital Signs Temp 96.2 F L 05/20/18 08:00 Pulse 72 05/20/18 08:00 Resp 16 05/20/18 11:06 BP 121/56 05/20/18 08:00 Pulse Ox 97 05/20/18 08:00 Intake & Output 05/19/18 05/20/18 05/20/18 18:59 06:59 18:59 Intake Total 110 200 240 Balance 110 200 240 Weight 113.6 kg Intake: Oral 110 200 240 Other: Voiding Method Diaper Diaper Diaper # Voids 2 1 - Exam On exam, alert and oriented x3. HEENT: Conjunctivae normal. eyes normal. NECK: No JVD. No thyroid enlargement. No LNs CARDIOVASCULAR: S1-S2 positive RESPIRATION: Breath sounds diminished in the bases. No rhonchi or crackles. No bronchial breathing. ABDOMEN: Soft, nontender . No guarding. no masses palpable. No ascites, No hepatosplenomegaly.Bowel sounds heard. LEGS: Trace pedal edema NERVOUS SYSTEM: Cranial N 2-12 grossly normal. Moves all 4 limbs but really weak in the lower extremities barely able to keep them up against gravity Skin: no ulcer no rash - Labs CBC & Chem 7: 05/20/18 08:36 05/20/18 08:36 Labs: Abnormal Lab Results - Last 24 Hours (Table) 05/19/18 05/19/18 05/20/18 Range/Units 16:47 20:02 06:24 MCV (80.0-100.0) fL MCHC (31.0-37.0) g/dL Plt Count (150-450) k/uL Carbon Dioxide (22-30) mmol/L BUN (7-17) mg/dL Creatinine (0.52-1.04) mg/dL Glucose (74-99) mg/dL POC Glucose (mg/dL) 173 H 205 H 154 H (75-99) mg/dL 05/20/18 05/20/18 05/20/18 Range/Units 08:36 08:36 11:30 MCV 110.2 H (80.0-100.0) fL MCHC 29.6 L (31.0-37.0) g/dL Plt Count 126 L (150-450) k/uL Carbon Dioxide 35 H (22-30) mmol/L BUN 33 H (7-17) mg/dL Creatinine 1.23 H (0.52-1.04) mg/dL Glucose 201 H (74-99) mg/dL POC Glucose (mg/dL) 156 H (75-99) mg/dL Microbiology - Last 24 Hours (Table) 05/17/18 22:57 Urine Culture - Final Urine,Catheterized Assessment and Plan Assessment: - A. fib with controlled rate - AK I- - Weakness - Hyperkalemia - History of hypertension - History of hyperlipidemia - History of diabetes Plan - Creatinine is 1.23 today up from 0.89 - we will hold the Lasix and started on IV fluids - We'll continue medications - Patient will require rehab. She is very weak. The case was discussed with patient and the granddaughter in detail. Granddaughter finally agreed - We'll follow the patient Time with Patient: Greater than 30
[2018-05-20 16:51] LABS: Glucose,Whole Blood 129 mg/dL (75-99)
[2018-05-20] MEDS: SODIUM CHLORIDE 0.9% 1,000 ML IV SCH ×2 (19:27→19:34)
[2018-05-20 20:56] LABS: Glucose,Whole Blood 166 mg/dL (75-99)
[2018-05-20] MEDS: MELATONIN 3 MG TABLET PO PRN (23:13)
[2018-05-21] MEDS: SODIUM CHLORIDE 0.9% 1,000 ML IV SCH (04:58)
[2018-05-21 06:18] LABS: Glucose,Whole Blood 125 mg/dL (75-99)
[2018-05-21] MEDS: INSULIN ASPART (NovoLOG) 100 UNIT/ML VIAL SQ SCH ×2 (06:27→12:19)
[2018-05-21 07:12] LABS: Calcium 9.3 mg/dL (8.4-10.2); Potassium 4.7 mmol/L (3.5-5.1)
[2018-05-21 07:50] VITALS: TEMP 96.5
[2018-05-21] MEDS: APIXABAN 2.5 MG TABLET PO SCH (07:51)
[2018-05-21] MEDS: LISINOPRIL 5 MG TAB PO SCH (07:51)
[2018-05-21] MEDS: METOPROLOL TARTRATE 25 MG TAB PO SCH (07:51)
[2018-05-21] MEDS: ATORVASTATIN 20 MG TAB PO SCH (07:51)
[2018-05-21 11:31] LABS: Glucose,Whole Blood 153 mg/dL (75-99)
[2018-05-21 11:48] VITALS: BP 92/55; PULSE 67; RESP 16
--- NOTE | 2018-05-22 13:42 | P.DS ---
Providers Date of admission: 05/18/18 01:36 Expected date of discharge: 05/21/18 Attending physician: Jonah Davis Consults: 05/18/18 01:36 Consult Physician Routine Consulting Provider: Deann Meyer Consult Reason/Comments: afib Do you want consulting provider notified?: Yes Primary care physician: Kay Aranda [place] [facility] Course: Discharge diagnosis - Weakness - A. fib with controlled rate - [place] - Hypertension - Diabetes Very pleasant 87-year-old female comes into the ER as she was weak and not able to get out of the chair. She stays with the granddaughter at home. She did not have a fall was not feeling lightheaded or dizzy but was is feeling weak in her lower extremities. She did not complain of any chest pain or racing heart, no cough no shortness of breath, no loss of consciousness, no dizziness. In the ER she was found to be in A. fib with controlled rate. She was put on eliquis and Lopressor.. She was on Lasix and she was not having lot of appetite and she was not drinking enough water. Her kidney functions worsened to about 1.23 from a baseline of 0.9. Her Lasix were held initially was started on IV fluids. Kidney function slowly improved. on 05/21/2018 On exam, alert and oriented x3. HEENT: Conjunctivae normal. eyes normal. NECK: No JVD. No thyroid enlargement. No LNs CARDIOVASCULAR: S1, S2 RESPIRATION: Breath sounds diminished in the bases. No rhonchi or crackles. No bronchial breathing. ABDOMEN: Soft, nontender . No guarding. no masses palpable. No ascites, No hepatosplenomegaly.Bowel sounds heard. LEGS: No edema. no swelling NERVOUS SYSTEM: Cranial N 2-12 grossly normal. Moves all 4 limbs. No focal deficits. No sensory deficit. No signs of cerebellar dysfucntion. Skin: no ulcer no rash Plan Lasix on hold right now please repeat the BMP and start Lasix as appropriate Continue rest of medications Follow-up with the primary care doctor in 1 week Follow with archivist as needed Patient Condition at Discharge: Fair Plan - Discharge Summary Discharge Rx Participant: No New Discharge Prescriptions: New Apixaban [Eliquis] 2.5 mg PO BID #60 tablet Metoprolol Tartrate [Lopressor] 25 mg PO BID tab Continue glipiZIDE [Glucotrol] 5 mg PO AC-BRKFST Simvastatin [Zocor] 40 mg PO DAILY Aspirin 81 mg PO DAILY Lisinopril [Prinivil] 5 mg PO DAILY Discontinued Potassium Chloride [K-Tab ER] 10 meq PO DAILY Furosemide [Lasix] 20 mg PO DAILY Nadolol [Corgard] 20 mg PO DAILY Discharge Medication List Aspirin 81 mg PO DAILY 12/22/14 [History] Lisinopril [Prinivil] 5 mg PO DAILY 12/22/14 [History] Simvastatin [Zocor] 40 mg PO DAILY 12/22/14 [History] glipiZIDE [Glucotrol] 5 mg PO AC-BRKFST 12/22/14 [History] Apixaban [Eliquis] 2.5 mg PO BID #60 tablet 05/21/18 [Rx] Metoprolol Tartrate [Lopressor] 25 mg PO BID tab 05/21/18 [Rx] Follow up Appointment(s)/Referral(s): Kay Aranda MD [Primary Care Provider] - 1-2 days Ambulatory/Diagnostic Orders: Basic Metabolic Panel [LAB.AMB] Time Frame: 2 Days, Location: None Selected Activity/Diet/Wound Care/Special Instructions: [facility] Discharge Disposition: TRANSFER TO SNF/ECF
== END 2018-05-21 15:49 ==
LOC: EC 22:03 → 3SCARD 05-18 01:36
PROVIDERS: ADMIT Hospitalist; ATTEND Hospitalist
DX: R53.1 Weakness (principal); I48.0 Paroxysmal atrial fibrillation; R06.02 Shortness of breath; R62.7 Adult failure to thrive; I11.0 Hypertensive heart disease with heart failure; I50.9 Heart failure, unspecified; N17.9 Acute kidney failure, unspecified; E11.9 Type 2 diabetes mellitus without complications; E87.5 Hyperkalemia; E78.5 Hyperlipidemia, unspecified; F03.90 Unspecified dementia, unspecified severity, without behavioral disturbance, psychotic disturbance, mood disturbance, and anxiety; E66.9 Obesity, unspecified; Z68.41 Body mass index [BMI] 40.0-44.9, adult; Z99.81 Dependence on supplemental oxygen; Z79.82 Long term (current) use of aspirin; Z79.899 Other long term (current) drug therapy; Z79.84 Long term (current) use of oral hypoglycemic drugs; Z88.8 Allergy status to other drugs, medicaments and biological substances; Z66 Do not resuscitate
CPT/HCPCS: 96372; 96374; 96361 ×2; 99285; 36415; 94760; 93005; 97116 ×2; 97110 ×2; 97163; 97530; 97167; 83880; 80053; 80048 ×3; 83605 ×2; 83735; 84100; 84132; 84443; 84484; 85025; 85027; 85610; 85730; 81003; 87086; 71046; G0378 ×4; C8929; J1940; J1650; Q9950; 93306

== ENCOUNTER 2019-02-26 21:18 | Emergency (ER) | payer MEDICARE ==
[2019-02-26 21:38] VITALS: TEMP 98.2
--- NOTE | 2019-02-26 22:42 | XR ---
EXAMINATION TYPE: XR chest 2V DATE OF EXAM: 02/26/2019 COMPARISON: May 17, 2018 HISTORY: Weakness TECHNIQUE: 2 views FINDINGS: There is some mild atelectasis at the lung bases. There is poor inspiration. There is coars ening of the pulmonary interstitial markings. Heart is borderline enlarged. There is probably small l eft pleural effusion. IMPRESSION: Mild atelectasis at the lung bases. No obvious heart failure. Mild pulmonary fibrosis. No significant change.
[2019-02-26 23:05] LABS: Basophils % (A) 0 %; Eosinophils # (A) 0.1 k/uL (0-0.7); Eosinophils % (A) 2 %; HCT 37.8 % (34.0-46.0); HGB 11.7 gm/dL (11.4-16.0); Hypochromasia Moderate; Lymphocytes # (A) 0.8 k/uL (1.0-4.8); Lymphocytes % (A) 12 %; MCH 33.3 pg (25.0-35.0); MCV 107.2 fL (80.0-100.0); Macrocytosis Moderate; Mean Platelet Volume 8.8; Monocytes # (A) 0.6 k/uL (0-1.0); Monocytes % (A) 9 %; Neutrophils # (A) 4.4 k/uL (1.3-7.7); Neutrophils % (A) 72 %; Platelet Count 168 k/uL (150-450); RBC 3.52 m/uL (3.80-5.40); RDW 12.1 % (11.5-15.5)
[2019-02-26 23:07] LABS: Albumin 3.6 g/dL (3.5-5.0); Calcium 9.9 mg/dL (8.4-10.2); Total Bilirubin 0.7 mg/dL (0.2-1.3); Total Protein 7.2 g/dL (6.3-8.2)
[2019-02-26 23:20] LABS: Magnesium 1.8 mg/dL (1.6-2.3)
[2019-02-26 23:22] VITALS: RESP 22
--- NOTE | 2019-02-26 23:48 | ED ---
General Adult HPI - General Chief complaint: Shortness of Breath Stated complaint: Weight Gain Time Seen by Provider: 02/26/19 21:45 Source: patient, family, RN notes reviewed, old records reviewed Mode of arrival: wheelchair Limitations: no limitations - History of Present Illness Initial comments: This 88-year-old female history of congestive failure among other medical issues who is brought in by family members due to approximate 12 hour waking up last week and a half. She also does have peripheral edema but she denies any difficulty breathing chest pain fevers chills nausea vomiting sweats or other symptoms. This is confirmed by family members. No new change in medications patient is oxygen dependent and has not had any trouble with breathing recently. - Related Data Home Medications Medication Instructions Recorded Confirmed Aspirin 81 mg PO DAILY 12/22/14 05/17/18 Lisinopril [Prinivil] 5 mg PO DAILY 12/22/14 05/17/18 Simvastatin [Zocor] 40 mg PO DAILY 12/22/14 05/17/18 glipiZIDE [Glucotrol] 5 mg PO [id number] 12/22/14 05/17/18 Previous Rx's Medication Instructions Recorded Apixaban [Eliquis] 2.5 mg PO BID #60 tablet 05/21/18 Metoprolol Tartrate [Lopressor] 25 mg PO BID tab 05/21/18 Allergies Allergy/AdvReac Type Severity Reaction Status Date / Time diphenhydramine HCl Allergy Anaphylaxis Verified 05/17/18 22:14 [From Benadryl] Review of Systems ROS Statement: Those systems with pertinent positive or pertinent negative responses have been documented in the HPI. ROS Other: All systems not noted in ROS Statement are negative. Past Medical History Past Medical History: Heart Failure, Diabetes Mellitus, Hyperlipidemia, Hypertension Additional Past Medical History / Comment(s): pt wears home oxygen 2L History of Any Multi-Drug Resistant Organisms: None Reported Past Surgical History: Appendectomy, Hysterectomy Past Anesthesia/Blood Transfusion Reactions: No Reported Reaction Past Psychological History: No Psychological Hx Reported Smoking Status: Never smoker Past Alcohol Use History: None Reported, Occasional Past Drug Use History: None Reported - Past Family History Daughter(s) Family Medical History: Hypertension Mother Family Medical History: Diabetes Mellitus General Exam - General Exam Comments Initial Comments: This is a well-developed obese female who is awake alert oriented 3 Limitations: no limitations General appearance: alert, in no apparent distress Head exam: Present: atraumatic, normocephalic, normal inspection Eye exam: Present: normal appearance, PERRL, EOMI. Absent: scleral icterus, conjunctival injection, periorbital swelling ENT exam: Present: normal exam, mucous membranes moist Neck exam: Present: normal inspection. Absent: tenderness, meningismus, lymphadenopathy Respiratory exam: Present: normal lung sounds bilaterally. Absent: respiratory distress, wheezes, rales, rhonchi, stridor Cardiovascular Exam: Present: regular rate, normal rhythm, normal heart sounds. Absent: systolic murmur, diastolic murmur, rubs, gallop, clicks GI/Abdominal exam: Present: soft, normal bowel sounds, other. Absent: distended, tenderness, guarding, rebound, rigid Rectal exam: Present: deferred (Obese abdomen) Extremities exam: Present: normal inspection, full ROM, normal capillary refill, pedal edema. Absent: tenderness, joint swelling, calf tenderness Back exam: Present: normal inspection Neurological exam: Present: alert, oriented X3, CN II-XII intact Psychiatric exam: Present: normal affect, normal mood Skin exam: Present: warm, dry, intact, normal color. Absent: rash Course Vital Signs 02/26/19 02/26/19 21:33 23:00 Temperature 98.2 F Pulse Rate 76 68 Respiratory 18 22 Rate Blood Pressure 113/56 129/73 O2 Sat by Pulse 99 95 Oximetry EKG Findings - EKG Results: EKG: interpreted by ERMD (Interpretation rate is 70 QRS 90 QT since QTC 380/410) Medical Decision Making - Medical Decision Making I did discuss findings with patient and family members. Patient like to go home she'll be placed on increased dosing of Lasix she is on 20 mg twice a day at this time the family would like to try increasing it by 20 mg morning which is reasonable at this time. They will increase at 2 days and then alternate days and monitor closely the patient's weight and respiratory status. They are very well versed in this. - Lab Data Result diagrams: 02/26/19 22:00 02/26/19 22:00 Lab Results 02/26/19 02/26/19 02/26/19 Range/Units 22:00 22:00 22:00 WBC 6.0 (3.8-10.6) k/uL RBC 3.52 L (3.80-5.40) m/uL Hgb 11.7 (11.4-16.0) gm/dL Hct 37.8 (34.0-46.0) % MCV 107.2 H (80.0-100.0) fL MCH 33.3 (25.0-35.0) pg MCHC 31.0 (31.0-37.0) g/dL RDW 12.1 (11.5-15.5) % Plt Count 168 (150-450) k/uL Neutrophils % 72 % Lymphocytes % 12 % Monocytes % 9 % Eosinophils % 2 % Basophils % 0 % Neutrophils # 4.4 (1.3-7.7) k/uL Lymphocytes # 0.8 L (1.0-4.8) k/uL Monocytes # 0.6 (0-1.0) k/uL Eosinophils # 0.1 (0-0.7) k/uL Basophils # 0.0 (0-0.2) k/uL Hypochromasia Moderate Macrocytosis Moderate Sodium 137 (137-145) mmol/L Potassium 5.0 (3.5-5.1) mmol/L Chloride 92 L (98-107) mmol/L Carbon Dioxide 41 H* (22-30) mmol/L Anion Gap 4 mmol/L BUN 25 H (7-17) mg/dL Creatinine 0.98 (0.52-1.04) mg/dL Est GFR (CKD-EPI)AfAm 59 (>60 ml/min/1.73 sqM) Est GFR (CKD-EPI)NonAf 51 (>60 ml/min/1.73 sqM) Glucose 254 H (74-99) mg/dL Calcium 9.9 (8.4-10.2) mg/dL Magnesium 1.8 (1.6-2.3) mg/dL Total Bilirubin 0.7 (0.2-1.3) mg/dL AST 42 H (14-36) U/L ALT 26 (9-52) U/L Alkaline Phosphatase 68 (38-126) U/L Creatine Kinase 95 (30-135) U/L NT-Pro-B Natriuret Pep 964 pg/mL Total Protein 7.2 (6.3-8.2) g/dL Albumin 3.6 (3.5-5.0) g/dL - Radiology Data Radiology results: report reviewed (I did review the imaging and report there is some evidence of a small amount of left pleural effusion some increased pulmonary vascular markings), image reviewed Disposition Clinical Impression: Chronic atrial fibrillation, Peripheral edema Disposition: HOME SELF-CARE Condition: Good Instructions (If sedation given, give patient instructions): Leg Edema (ED) Additional Instructions: Double the Lasix dose for the next 2 days and then alternate every other day as discussed. Daily weights. Monitor respiratory status. Return if any problems or lack of improvement Is patient prescribed a controlled substance at d/c from ED?: No Referrals: Ramesh Gonzalez MD [Primary Care Provider] - 1-2 days
[2019-02-27 00:23] VITALS: BP 131/59; PULSE 67
== END 2019-02-27 00:10 | disposition home or self-care (01) ==
LOC: EC 21:18
DX: I48.20 Chronic atrial fibrillation, unspecified (principal); R60.0 Localized edema; I11.0 Hypertensive heart disease with heart failure; I50.9 Heart failure, unspecified; E11.9 Type 2 diabetes mellitus without complications; E78.5 Hyperlipidemia, unspecified; Z88.8 Allergy status to other drugs, medicaments and biological substances; Z79.82 Long term (current) use of aspirin; Z79.84 Long term (current) use of oral hypoglycemic drugs; Z79.899 Other long term (current) drug therapy; Z99.81 Dependence on supplemental oxygen; Z82.49 Family history of ischemic heart disease and other diseases of the circulatory system
CPT/HCPCS: 36415; 71046; 80053; 82550; 83735; 83880; 84484; 85025; 93005; 99285